=== PATIENT | male | born 1975 | race Caucasian/White ===

== ENCOUNTER 2017-01-26 03:14 | Emergency (ER) | payer MEDICAID, OTHER ==
[2017-01-26 03:20] VITALS: PULSE 63; RESP 16; TEMP 98.1
[2017-01-26] MEDS ORDERED: OXYCODONE/APAP 5/325 TAB PO ONE (03:54)
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
[2017-01-26] MEDS ORDERED: HYDROCOD/APAP 5/325 PREPACK#6 BTL TAKEHOME ONE (04:56)
[2017-01-26 05:16] VITALS: BP 103/68; O2SAT 92
== END 2017-01-26 05:15 | disposition home or self-care (01) ==
DX: S52.124A Nondisplaced fracture of head of right radius, initial encounter for closed fracture (principal); Z87.891 Personal history of nicotine dependence; V18.0XXA Pedal cycle driver injured in noncollision transport accident in nontraffic accident, initial encounter; Y99.8 Other external cause status; Y93.55 Activity, bike riding
CPT/HCPCS: A4565